=== PATIENT | female | born 1990 | race African-American/Black ===

== ENCOUNTER 2017-01-25 05:59 | Inpatient (IN) | payer OTHER ==
[~2017-01-25] VITALS: Ht 157.5 cm; Wt 83.3 kg
--- NOTE | ~2017-01-25 | OR ---
PATIENT'S NAME: SUSAN PHILIP [facility] AGE: 26 Y [address] ROOM: [place] [id number] LOCATION: GO ADMIT DATE: 01/25/2017 OR/Procedure Report DISCHARGE DATE: FAMILY PHYSICIAN: Marielena Benitez MD ATTENDING PHYSICIAN: MARIELA CEBALLOS SURGEON: Mariela Ceballos MD DIRECTOR OF MAINTENANCE: Marielena Benitez M.D. Dr. Benitez assistance was required for safe delivery of the fetus as well as adequate visualizations of the tissues. DATE OF PROCEDURE: 01/25/2017 PROCEDURE PERFORMED: Repeat low transverse section. FINDINGS: Viable female , weight 6 pounds 11 ounces, and score of 8 and 9. Intact placenta with 3-vessel cord. Normal-appearing uterus, tubes, and ovaries. Dense adhesive disease was present along the fascia and abdominal wall. SPECIMENS: Cord blood. Placenta not sent for pathology. ESTIMATED BLOOD LOSS: 600 mL. ANTIBIOTICS: 2 g Ancef. ANESTHESIA: With the spinal. COMPLICATIONS: None. DISPOSITION: The patient remained in the OR for a TAP block and then was to be sent to her room for normal postop care. INDICATION FOR THE PROCEDURE: The patient is a 26-year-old, G3, P2-0-0-2, who presented for a scheduled repeat low-transverse section at 39 weeks and 0 days. 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 The patient has had hemoglobin earlier in the that was 8.8. She had been on ferrous sulfate. Repeat hemoglobin the morning of surgery was 10. The patient was aware of the risks and benefits of the procedure to include, but not limited to, risk of bleeding, risk of infection, risk of injury to bowel and bladder, risks associated with anesthesia, and risk of thromboembolism. She was aware of the risks and desired to proceed. DESCRIPTION OF THE PROCEDURE: The patient was seen preoperatively and consents were reviewed, and she denied any questions. She was then taken back PATIENT'S NAME: SUSAN PHILIP [facility] AGE: 26 Y [address] ROOM: [address] [address] LOCATION: GO ADMIT DATE: 01/25/2017 OR/Procedure Report DISCHARGE DATE: FAMILY PHYSICIAN: Marielena Benitez MD ATTENDING PHYSICIAN: MARIELA CEBALLOS to the operating room where spinal anesthesia was established. She was then placed in the dorsal supine position with a leftward tilt of the hips. A Devries catheter was placed. She was prepped and draped in the usual sterile fashion. Anesthesia was tested and found to be adequate. Incision was made in the skin and carried down to the underlying fascia. I did discuss with the patient prior to the procedure that I was going to use a different placement for her incision as I felt that her previous incision was too low on her abdomen. The fascia was then nicked on both sides of the midline and fascial incision was extended using curved Nelson scissors. The fascia was tented up using Sho clamps and was dissected from the underlying muscles using blunt pressure as well as sharp dissection with a scalpel. This was repeated on the inferior aspect with blunt dissection and sharp dissection with Nelson scissors. The peritoneum was then entered and spread bluntly. Bladder blade and Rich retractor were placed. A clean knife was used to make a low-transverse hysterotomy incision, which was spread in a cephalocaudal direction. The surgeon's hand was placed into the uterus. Membranes were ruptured clear fluid. With the assistance of fundal pressure, the head was then delivered followed by shoulders and remainder of body. No nuchal cord was noted. Cord was clamped and cut. Infant was handed off to the waiting nursing team. Cord blood was obtained. IV Pitocin was started per protocol. Uterus was massaged and placenta was expressed with traction and appeared to be intact. Uterus was exteriorized and cleared of all remaining clots and debris. It was then closed in a two layer fashion for hemostasis using running lock suture of 0 Vicryl. The ovaries and tubes appeared normal. Uterus was placed back into the abdomen. Bilateral pericolic gutters were cleared of all clots. Incision was again inspected using the assistance of the bladder blade for retraction and appeared hemostatic. The fascia was then closed in a running nonlocked fashion using looped 0 PDS. The subcutaneous tissue was irrigated and any areas of bleeding were cauterized with Bovie cautery. The skin was then reapproximated using 4-0 Vicryl on a Richy needle. Mastisol and Steri-Strips were applied. The patient remained in the recovery room in stable condition. All needle, sponge, and instrument counts were noted to be correct x2. MD RUBY EDUARDO/isabelle /[id number] d: 01/25/17 1024 t: 01/26/17 0940, OPERATIVE SUMMARY
[2017-01-25] MEDS ORDERED: FEOSOL325 MG PO (06:46)
[2017-01-25] MEDS ORDERED: PROVENTIL OR V6.7 GM INH (06:47)
[2017-01-25 06:48] LABS: BASOPHIL % 0.2 %; EOSINOPHIL # 0.2 K/uL (0.0-0.5); EOSINOPHIL % 1.9 %; HEMATOCRIT 33.4 % (33.0-46.0); IMMATURE GRANULOCYTE # 0.1 K/uL (0.0-0.3); IMMATURE GRANULOCYTE % 0.6 %; LYMPHOCYTE # 1.9 K/uL (0.8-4.0); MCH 23.3 pg (27.0-34.0); MCHC 29.9 gm/dL (32.0-36.5); MCV 77.9 fl (83.0-98.0); MONOCYTE # 0.5 K/uL (0.0-1.0); MONOCYTE % 6.5 %; MPV 11.8 fl (9.4-12.4); NEUTROPHIL # (ANC) 5.4 K/uL (1.8-7.8); NEUTROPHIL % 66.8 %; NRBC % 0 /100WBC (0-0.00); PLATELET COUNT 240 K/uL (150-450); RBC 4.29 M/uL (3.50-5.00)
[2017-01-25 06:49] LABS: RDW-CV 19.9 % (11.9-14.6)
--- NOTE | 2017-01-25 11:40 | NUR ---
Introduced self/role to patient. Baby girl is Yamilet Driver. Patient reports she lived in [place] but moved to [place] in the Fall of last year. She has 2 previous children, a son and daughter. There ages are 3 and 6. Patient reports she has joint custody with the kids father - never . I asked her what her other kids think of having a baby? She stated they didn't even know she was and have not talked with them. She reports things are terri with her and the father of her other children. He does not like her new significant other. Asked what supports she has here in [place]? She stated just her finance. He drives trucks for farmers. She said she knew about a mom's group in [facility] and was considering joining that. Gave her a list of resources for her area including [place] resources. She stated they had all their needed baby supplies - carseat, pack n play, diapers wipes and so on. They have reliable transportation. Will continue to doctor with Marielena Benitez at [facility] for both her and baby. Gave her the Medicaid number and encouraged her to call soon to get baby added. Gave her post depression information and talked about common trigger for stress and signs common signs and symptoms for depression. Addressed late care. She reports she didn't knows she was for a long time and once she found out applied for Medicaid. Encouraged good followup care. Addressed THC usage and discouraged her from smoking anything by baby for her baby's health and her own. Spoke to patients nurse Alisson, no concerns with baby and mom at this time besides items that have already been address. Pending cord screen.
--- NOTE | 2017-01-25 15:30 | NUR ---
Last VS: T:98.4 P:68 R: 16 BP: 106/74 Pain ratin. Last pain med: #2 Toradol @ 1500, Percocet due @ 1700. Lung sounds: clear Fundus: firm/midline Lochia: small Nipples: no issues Incision closure: gauze/paper tape Bowel sounds: hypo Passing flatus: no Voiding well: moreno can be discontinued whenever pt reports normal sensation Significant event: .Assessment & vs wnl. IV saline locked. Last hourly assessment due @ 1645. certificate & paternity papers in room.
--- NOTE | 2017-01-25 18:46 | NUR ---
Significant Event: Follow up: VSS, recovery complete @ 1700, moreno removed with 800 cc clear urine, ambulated to for pericare, stephy it well. Pneumatic leg pumps back on. SL int, last dose of Toradol due @ 2100, percocet last given @ 1646. Likes ice to abd. Paternity papers @ bedside with BC info sheet. Because of drug HX, a cord drug screen was done. Care management aware of situation. No void yet.
[2017-01-26 03:57] LABS: BASOPHIL % 0.2 %; EOSINOPHIL # 0.2 K/uL (0.0-0.5); EOSINOPHIL % 2.1 %; HEMATOCRIT 28.9 % (33.0-46.0); HEMOGLOBIN 8.6 g/dL (11.0-15.0); IMMATURE GRANULOCYTE % 0.4 %; LYMPHOCYTE # 1.9 K/uL (0.8-4.0); LYMPHOCYTE % 22.5 %; MCH 23.5 pg (27.0-34.0); MCHC 29.8 gm/dL (32.0-36.5); MONOCYTE # 0.6 K/uL (0.0-1.0); MONOCYTE % 6.8 %; MPV 11.5 fl (9.4-12.4); NEUTROPHIL # (ANC) 5.8 K/uL (1.8-7.8); NRBC % 0 /100WBC (0-0.00); RBC 3.66 M/uL (3.50-5.00); RDW-CV 19.6 % (11.9-14.6); WBC 8.5 K/uL (4.0-11.0)
[2017-01-26 04:14] LABS: PLATELET COUNT 184 K/uL (150-450)
--- NOTE | 2017-01-26 14:45 | NUR ---
Called Abuse Hotline and spoke to Nadya, whom was in training, gave them some updates. Doctor had ordered a colt consult today and we are trying to get records from the [facility] in [place] were she was following the or one of her other children. Patient could be released home as soon as tomorrow.
--- NOTE | 2017-01-26 17:30 | NUR ---
Significant Event: Follow up: VSS, hbg 8.6 from 10.0, sl dc'd. Feso4 po initiated. Psych consult ordered, records from hospital in [facility], requested via fax. Medicated with motrin & percocet @ 7684. Care management wants her to stay another day to get cord drug screen result , before discharge.
--- NOTE | 2017-01-27 06:01 | NUR ---
Last VS: T:98.6 P:82 R: 16 BP: 133/70 Pain rating: WNL. Last pain med: Motrin Medicated at: 2100 Effective: Yes Lung sounds: Normal Fundus: 1 down, firm midline Lochia: Small flow Breasts: Soft Nipples: Intact Incision: Sutures and steri strips Bowel sounds: Present Passing flatus: Yes Voiding well: Yes Significant event: Ambulates in room. Has not been up in halls this shift.
--- NOTE | 2017-01-27 09:55 | NUR ---
Samir Dale with the [facility] here regarding hotline referral. #[phone]. Gave her some background information on patient. 1005 Introduced Samir to patient and left the room. 1200 I called Samir, she has no concerns. Just needs the cord results and will do a home safety walk thru either today if dismissed early enough or tomorrow. Spoke to charge nurse several times throughout the day. She has called [facility] a few times regarding psych consult but no idea when they are coming. Has also contacted the hospital in [place] about records but request could take 1-2 days, was faxed yesterday. Cord screen still pending at 1615.
[2017-01-27] MEDS ORDERED: SURFAK240 MG PO (11:34)
[2017-01-27] MEDS ORDERED: PERCOCET 5-3251 EACH PO (11:34)
[2017-01-27] MEDS ORDERED: MOTRIN800 MG PO (11:36)
--- NOTE | 2017-01-29 08:10 | NUR ---
Contacted Abuse Hotline to update on cord results, spoke to Richelle. Babys cord was positive for THC.
== END 2017-01-27 16:45 | disposition disaster alternative care site (69) | DRG 765 ==
LOC: GOBS 05:59 → EDBD 06:00 → GOBS 01-27 16:45
PROVIDERS: ADMIT Obstetrics & Gynecology
DX: O34.211 Maternal care for low transverse scar from previous cesarean delivery (principal); O99.323 Drug use complicating pregnancy, third trimester; N85.8 Other specified noninflammatory disorders of uterus; Z3A.39 39 weeks gestation of pregnancy; Z37.0 Single live birth; O99.013 Anemia complicating pregnancy, third trimester; D64.9 Anemia, unspecified; Z87.891 Personal history of nicotine dependence; J45.909 Unspecified asthma, uncomplicated; Z86.59 Personal history of other mental and behavioral disorders
CPT/HCPCS: J0690; J1885; J2001; J2590; J7120